=== PATIENT | female | born 1995 | race Caucasian/White ===

== ENCOUNTER 2018-01-29 21:32 | Observation (INO) | payer OTHER ==
[~2018-01-29] VITALS: Ht 167.6 cm; Wt 90.7 kg
[2018-01-29] MEDS ORDERED: SODIUM CHLORIDE 0.9% 1000ML 1,000 ML IV STA (21:58)
[2018-01-30] MEDS ORDERED: SODIUM CHLORIDE 0.9% 1000ML 1,000 ML IV STA (00:54)
[2018-01-30] MEDS ORDERED: PIPER-TAZ 3.375 GM 50 ML IV STA (00:54)
[2018-01-30] MEDS ORDERED: LORAZEPAM INJ 2 MG/ML VIAL IV ONE (01:00)
[2018-01-30] MEDS ORDERED: MORPHINE SULFATE 2 MG/ML SYR IV PRN (01:45)
[2018-01-30] MEDS ORDERED: ONDANSETRON HCL INJ 2 MG/ML VIAL IV PRN (01:45)
[2018-01-30 03:10] VITALS: BP 123/76
[2018-01-30] MEDS: SODIUM CHLORIDE 0.9% 1000ML 1,000 ML IV SCH ×3 (03:30→14:40)
[2018-01-30 05:00] VITALS: BP 123/76
[2018-01-30] MEDS: PIPER-TAZ 3.375 GM 3.375 GM/100 ML BAG IV SCH ×2 (06:00→14:40)
[2018-01-30 07:17] LABS: BASOPHILS % 0.2 % (0.0-1.0); EOSINOPHILS # (AUTO) 0.1 (0.0-0.4); EOSINOPHILS % 0.6 % (0.0-6.0); HEMATOCRIT 40.7 % (34.2-44.1); HEMOGLOBIN 13.7 g/dL (12.0-16.0); LYMPHOCYTES # (AUTO) 2.7 (1.0-3.2); LYMPHOCYTES % 22.7 % (18.0-39.1); MEAN CORPUSCULAR HEMOGLOBIN 29.3 pg (28-32); MEAN CORPUSCULAR HGB CONC 33.7 g/dL (31-35); MEAN CORPUSCULAR VOLUME 87.2 fL (81-99); MONOCYTES # (AUTO) 0.8 (0.2-0.8); MONOCYTES % 6.5 % (4.4-11.3); NEUTROPHILS # (AUTO) 8.4 (2.1-6.9); NEUTROPHILS % 69.6 % (38.7-80.0); PLATELET COUNT 226 x10e3/uL (140-360); RED BLOOD COUNT 4.67 x10e6/uL (3.6-5.1); RED CELL DISTRIBUTION WIDTH 11.7 % (11.7-14.4)
[2018-01-30 07:33] LABS: INR 1.07; PROTHROMBIN TIME 13.1 seconds (11.9-14.5)
[2018-01-30 07:34] LABS: PARTIAL THROMBOPLASTIN TIME 31.3 seconds (23.8-35.5)
[2018-01-30 07:38] LABS: ALANINE AMINOTRANSFERASE 27 IU/L (0-55); ALBUMIN 3.4 g/dL (3.5-5.0); ALKALINE PHOSPHATASE 68 IU/L (40-150); ANION GAP 13.9 mmol/L (8-16); BLOOD UREA NITROGEN < 5 mg/dL (7-26); CALCIUM 9.4 mg/dL (8.4-10.2); CARBON DIOXIDE 21 mmol/L (22-29); CHLORIDE 111 mmol/L (98-107); CREATININE, SERUM 0.71 mg/dL (0.57-1.11); EST GLOMERULAR FILTRATION RATE > 60 ML/MIN (60-); GLUCOSE 87 mg/dL (74-118); POTASSIUM 3.9 mmol/L (3.5-5.1); SODIUM 142 mmol/L (136-145)
[2018-01-30 07:43] LABS: BUN/CREATININE RATIO 7 (6-25)
[2018-01-30 08:16] VITALS: BP 127/72
[2018-01-30] MEDS ORDERED: ONDANSETRON HCL 4 MG ORAL DISINTEGRATING TAB SL PRN (09:00)
[2018-01-30] MEDS ORDERED: MIDAZOLAM HCL 2 MG/2 ML VIAL ONE (11:32)
[2018-01-30] MEDS ORDERED: FENTANYL CITRATE/PF 100MCG/2 ML INJ ONE (11:32)
[2018-01-30 12:00] VITALS: BP 120/70
[2018-01-30] MEDS ORDERED: BUPIVACAINE 0.25%/EPI 30ML SDV INJ ONE (15:55)
[2018-01-30] MEDS: DEXTROSE 5%/LACTATED RINGERS 1,000 ML IV SCH (17:10)
[2018-01-30] MEDS ORDERED: ACETAMINOPHEN 1000 MG/100 ML IV PRN (17:15)
[2018-01-30] MEDS ORDERED: PROMETHAZINE HCL (IM) 25 MG/ML VIAL IV PRN (17:15)
[2018-01-30] MEDS ORDERED: MEPERIDINE HCL INJ 50 MG/ML INJ ONE (17:25)
[2018-01-30] MEDS ORDERED: PROMETHAZINE 12.5MG/ NACL 0.9% 50 ML IV PRN (17:30)
[2018-01-30 19:45] VITALS: BP 100/61
[2018-01-30] MEDS: HYDROCODONE/APAP 7.5MG-325MG 1 EA TAB PO PRN (20:00)
[2018-01-30 22:00] VITALS: BP 100/61
[2018-01-30] MEDS: PIPER-TAZ 3.375 GM 100 ML IV SCH (22:17)
[2018-01-31 00:44] VITALS: BP 92/56
--- NOTE | 2018-01-31 01:28 | Operative Report ---
DATE OF PROCEDURE: January 30, 2018 PREOPERATIVE DIAGNOSIS: Acute appendicitis. POSTOPERATIVE DIAGNOSIS: Acute appendicitis. OPERATION PERFORMED: Laparoscopic appendectomy. [employer] CAPTAIN: DIPAK Maldonado ANESTHESIA: General. COMPLICATIONS: None. ESTIMATED BLOOD LOSS: Minimal. DESCRIPTION OF PROCEDURE: With the patient lying in bed in the supine position under good general endotracheal anesthesia, the abdomen was prepped with Betadine solution and draped in the usual manner. Veress needle was introduced into the umbilicus and pneumoperitoneum was established without any difficulty. A 12-mm trocar was placed into the umbilicus and a 10-mm video laparoscope was placed into the intraabdominal cavity. Under direct vision, a 5-mm trocar was placed in the suprapubic region and another 5-mm trocar was placed in the left lower quadrant. Video laparoscopy at this point revealed an acutely inflamed appendix, which was covered by the terminal ileum and the lateral gutter on the right side. This appeared to be fibrotic and there was no sign of perforation. The appendix was then from all of the adhesions and the base of the appendix was then dissected from the cecum and the base of the appendix as it joined the cecum was divided with an application of the Endo SHANA stapler. The mesentery of the appendix was then divided with 2 applications of the Endo SHANA vascular stapler. The appendix was placed in a pouch and removed through the umbilicus. Video laparoscopy was then again carried out. Hemostasis was ascertained. The whole area was then thoroughly irrigated and all of the excess fluid was aspirated. The pneumoperitoneum was evacuated and all the trocars were removed under direct vision. Midline fascia at the umbilicus was then closed with a [id number] of 0-Vicryl. All layers were infiltrated on the way out with solution 0.5% Marcaine. Subcutaneous tissue was approximated with 3-0 Vicryl and the skin was closed with subcuticular 5-0 Vicryl. Benzoin, Steri-Strips, and Band-Aids were applied. The sponge, lap, and needle count was correct. The patient tolerated the procedure well and returned to the recovery room in stable condition. Job#: [id number]
[2018-01-31] MEDS: HYDROCODONE/APAP 7.5MG-325MG 1 EA TAB PO PRN ×3 (04:30→15:21)
[2018-01-31] MEDS: DEXTROSE 5%/LACTATED RINGERS 1,000 ML IV SCH ×2 (04:30→13:20)
[2018-01-31 05:20] VITALS: BP 106/63
[2018-01-31 05:21] VITALS: BP 106/63
[2018-01-31] MEDS: PIPER-TAZ 3.375 GM 100 ML IV SCH ×2 (05:59→13:34)
[2018-01-31 06:17] LABS: BASOPHILS % 0.2 % (0.0-1.0); HEMATOCRIT 36.7 % (34.2-44.1); HEMOGLOBIN 12.1 g/dL (12.0-16.0); LYMPHOCYTES # (AUTO) 1.9 (1.0-3.2); LYMPHOCYTES % 23.5 % (18.0-39.1); MEAN CORPUSCULAR HEMOGLOBIN 29.3 pg (28-32); MEAN CORPUSCULAR VOLUME 88.9 fL (81-99); MONOCYTES # (AUTO) 0.4 (0.2-0.8); MONOCYTES % 5.1 % (4.4-11.3); NEUTROPHILS # (AUTO) 5.8 (2.1-6.9); PLATELET COUNT 209 x10e3/uL (140-360); RED BLOOD COUNT 4.13 x10e6/uL (3.6-5.1); RED CELL DISTRIBUTION WIDTH 11.6 % (11.7-14.4)
[2018-01-31 06:52] LABS: ANION GAP 12.9 mmol/L (8-16); BLOOD UREA NITROGEN 5 mg/dL (7-26); BUN/CREATININE RATIO 7 (6-25); CALCIUM 9.1 mg/dL (8.4-10.2); CARBON DIOXIDE 23 mmol/L (22-29); CHLORIDE 107 mmol/L (98-107); CREATININE, SERUM 0.69 mg/dL (0.57-1.11); EST GLOMERULAR FILTRATION RATE > 60 ML/MIN (60-); GLUCOSE 106 mg/dL (74-118); POTASSIUM 3.9 mmol/L (3.5-5.1); SODIUM 139 mmol/L (136-145)
[2018-01-31 08:07] VITALS: BP 116/63
[2018-01-31 09:48] VITALS: BP 116/63
[2018-01-31 14:53] VITALS: BP 115/71
== END 2018-01-31 18:39 | disposition home or self-care (01) ==
LOC: FSED 21:32 → ERHOLD 01-30 02:55 → IMCU 01-30 02:56
PROVIDERS: ADMIT Surgery; ATTEND Surgery
DX: K35.80 Unspecified acute appendicitis (principal)
CPT/HCPCS: 36415 ×2; 44970; 76705; 76857; 80048; 80053 ×2; 80076; 81003; 81025; 84702; 85025 ×3; 85610; 85730; 86850; 86900; 88304; 99284; C1766; G0378 ×2; J2060; J2175; J2250; J2270; J2543 ×2; J7030 ×2; J7120